=== PATIENT | female | born 1990 | race American Indian/Alaskan Native ===

== ENCOUNTER 2018-08-19 00:22 | Emergency (ER) | payer SELFPAY ==
[2018-08-19 19:59] VITALS: BP 102/67
== END 2018-08-19 03:20 | disposition left against medical advice (07) ==
LOC: ED 00:22
DX: R51 Headache (principal); Z53.21 Procedure and treatment not carried out due to patient leaving prior to being seen by health care provider

== ENCOUNTER 2018-10-02 02:20 | Emergency (ER) | payer OTHER ==
[2018-10-02 03:04] LABS: Hematocrit 35.6 % (30.3-42.9); Hemoglobin 11.9 gm/dl (10.1-14.3); Mean Corpuscular HGB Conc 34 % (30-34); Mean Corpuscular Volume 86 fl (79-97); Platelet Count 133 K/mm3 (140-440); Red Blood Count 4.15 M/mm3 (3.65-5.03); Red Cell Distribution Width 14.3 % (13.2-15.2)
[2018-10-02 03:23] LABS: BUN/Creatinine Ratio 28; Blood Urea Nitrogen 17 mg/dL (7-17); Calcium 8.9 mg/dL (8.4-10.2); Hemolysis Index 4
[2018-10-02] MEDS ORDERED: DepaCON 500 MG in NACL 0.9% 100 ML IV ONE (03:46)
[2018-10-02] MEDS ORDERED: NORCO 5/325 PO ONE (03:46)
--- NOTE | 2018-10-02 03:50 | Emergency Department Report ---
ED Headache HPI - General Chief Complaint: Headache Stated Complaint: HEADACHE Time Seen by Provider: 10/02/18 03:27 Source: patient Exam Limitations: no limitations - History of Present Illness Initial Comments: 27-year-old female presents to ED with left temporal headache. Patient reports seizure history, states she had a seizure yesterday and hit her head during the seizure. Patient states she took Tylenol for pain, however it did not help. Patient reports she takes Depakote for her seizures, states has been compliant with her medication. Timing/Duration: other (yesterday) Quality: moderate Head Injury Location: temporal Recent Head Trauma: head trauma < 24 hrs ago Associated Symptoms: denies: fever/chills, nausea/vomiting, vision changes, weakness Allergies/Adverse Reactions: Allergies No Known Allergies Allergy (Unverified 02/27/14 03:09) Home Medications: Ambulatory Orders Magnesium Oxide 400 mg PO BID #28 tablet 09/01/18 Valproic Acid 500 mg PO BID #120 capsule 09/01/18 Naproxen [Naprosyn] 500 mg PO BID #20 tablet 10/02/18 traMADol [Ultram] 50 mg PO Q6HR PRN #7 tablet 10/02/18 ED Review of Systems ROS: Stated complaint: HEADACHE Other details as noted in HPI Comment: All other systems reviewed and negative Constitutional: denies: chills, fever Gastrointestinal: denies: nausea, vomiting Neurological: headache, other (reports seizure). denies: weakness, numbness, paresthesias ED Past Medical Hx - Past Medical History Previous Medical History?: Yes Hx Hypertension: No Hx Diabetes: No Hx Deep Vein Thrombosis: No Hx Renal Disease: No Hx Sickle Cell Disease: No Hx Seizures: Yes (depakote) Hx Asthma: No Hx HIV: No - Surgical History Past Surgical History?: Yes Additional Surgical History: x2 - Social History Smoking Status: Former Smoker Substance Use Type: None - Medications Home Medications: Home Medications Medication Instructions Recorded Confirmed Last Taken Type Magnesium Oxide 400 mg PO BID #28 tablet 09/01/18 Unknown Rx Valproic Acid 500 mg PO BID #120 capsule 09/01/18 Unknown Rx Naproxen [Naprosyn] 500 mg PO BID #20 tablet 10/02/18 Unknown Rx traMADol [Ultram] 50 mg PO Q6HR PRN #7 tablet 10/02/18 Unknown Rx ED Physical Exam - General Limitations: No Limitations General appearance: alert, in no apparent distress - Head Head exam: Present: atraumatic, normocephalic - Eye Eye exam: Present: normal appearance, PERRL, EOMI - ENT ENT exam: Present: mucous membranes moist - Neck Neck exam: Present: normal inspection - Respiratory Respiratory exam: Present: normal lung sounds bilaterally. Absent: respiratory distress - Cardiovascular Cardiovascular Exam: Present: regular rate, normal rhythm - GI/Abdominal GI/Abdominal exam: Absent: distended - Extremities Exam Extremities exam: Present: normal inspection - Neurological Exam Neurological exam: Present: alert, oriented X3, CN II-XII intact. Absent: motor sensory deficit - Psychiatric Psychiatric exam: Present: normal affect, normal mood - Skin Skin exam: Present: warm, dry, intact, normal color ED Course Vital Signs 10/02/18 10/02/18 02:32 04:48 Temperature 97.8 F 97.0 F L Pulse Rate 70 58 L Respiratory 18 16 Rate Blood Pressure 93/63 Blood Pressure 104/57 [Left] O2 Sat by Pulse 98 100 Oximetry ED Medical Decision Making - Lab Data Result diagrams: 10/02/18 02:56 10/02/18 02:56 - Radiology Data Radiology results: report reviewed, image reviewed - Medical Decision Making 27 yo F w/ BARRETT since hitting her head during seizure yesterday. GCS 15, no neuro deficits present. CT Head normal. Depakote level subtherapeutic, so pt loaded with IV depacon. No seizures here in the ED. Pt reports improvement of pain. Will discharge at this time. Return precautions given - Differential Diagnosis contusion, intracranial injury, subtherapeutic meds Critical care attestation.: If time is entered above; I have spent that time in minutes in the direct care of this critically ill patient, excluding procedure time. ED Disposition Clinical Impression: Seizure, Head injury Disposition: - TO HOME OR SELFCARE Is pt being admited?: No Condition: Stable Instructions: Minor Head Injury (ED), Recurrent Seizures Adult (ED) Prescriptions: Naproxen [Naprosyn] 500 mg PO BID #20 tablet traMADol [Ultram] 50 mg PO Q6HR PRN #7 tablet PRN Reason: Pain Referrals: JERRY JIMENEZ MD [Primary Care Provider] - 3-5 Days Time of Disposition: 05:31
--- NOTE | 2018-10-02 04:31 | Cat Scan Report ---
PROCEDURE: CT HEAD/BRAIN WO CON TECHNIQUE: Computerized tomography of the head was performed without contrast material. CT DOSE LENGTH PRODUCT: mGycm HISTORY: head injury COMPARISONS: None . FINDINGS: Skull and scalp: Normal . Paranasal sinuses: Normal . Ventricles and subarachnoid spaces: Normal . Cerebrum: No evidence of hemorrhage, acute infarction or mass . Cerebellum and brainstem: No evidence of hemorrhage, acute infarction or mass . Vasculature: Normal . IMPRESSION: Normal Examination . This document is electronically signed by Kang Todd MD., Oct 02 2018 04:29:45 AM ET
[2018-10-02 05:49] VITALS: BP 98/58
== END 2018-10-02 05:48 | disposition home or self-care (01) ==
LOC: ED 02:20
DX: S09.90XA Unspecified injury of head, initial encounter (principal); R56.9 Unspecified convulsions; Z87.891 Personal history of nicotine dependence; X58.XXXA Exposure to other specified factors, initial encounter; Y93.89 Activity, other specified; Y92.89 Other specified places as the place of occurrence of the external cause; Y99.8 Other external cause status
CPT/HCPCS: 36415; 70450; 80048; 80164; 85027; 96365

== ENCOUNTER 2018-11-15 21:52 | Emergency (ER) | payer SELFPAY ==
[2018-11-15 21:57] VITALS: BP 113/73
[2018-11-15 22:49] LABS: Bilirubin,Urine NEG (Negative); Blood,Urine NEG (Negative); Color,Urine Yellow (Yellow); Mucus,Urine FEW /HPF; Protein,Urine <15 mg/dL mg/dL (Negative)
[2018-11-15 22:54] LABS: Hematocrit 36.9 % (30.3-42.9); Hemoglobin 12.6 gm/dl (10.1-14.3); Mean Corpuscular HGB Conc 34 % (30-34); Mean Corpuscular Volume 86 fl (79-97); Platelet Count 141 K/mm3 (140-440); Red Blood Count 4.29 M/mm3 (3.65-5.03); Red Cell Distribution Width 14.2 % (13.2-15.2)
[2018-11-15 23:07] LABS: Alanine Aminotransferase 74 units/L (7-56); Albumin 4.1 g/dL (3.9-5); BUN/Creatinine Ratio 16; Blood Urea Nitrogen 11 mg/dL (7-17); Calcium 9.1 mg/dL (8.4-10.2); Hemolysis Index 10
[2018-11-15] MEDS ORDERED: TORADOL IV ONE (23:28)
[2018-11-15] MEDS ORDERED: PEPCID IV ONE (23:28)
[2018-11-15] MEDS ORDERED: ZOFRAN IV ONE (23:28)
[2018-11-15 23:50] LABS: Basophils % (Manual) 0 % (0.0-1.8); Total Cells Counted 100
[2018-11-15 23:51] LABS: Ovalocytes Few; Platelet Estimate Consistent w Auto
--- NOTE | 2018-11-16 00:44 | Ultrasound Report ---
LIMITED RUQ ABDOMINAL ULTRASOUND INDICATION: abdominal pain. COMPARISON: No relevant prior imaging study available. FINDINGS: Pancreas: Visualized portions show no significant abnormality. Abdominal Aorta: No significant abnormality. IVC: No significant abnormality. Liver: Normal. Gallbladder: Normal. Sonographic Rico's sign: Not performed. Bile ducts: Normal. Common bile duct measures 3 mm. Free fluid: None. Additional Findings: None. IMPRESSION: 1. Normal exam. Signer Name: Ellis Trejo MD Signed: 11/16/2018 12:40 AM Workstation Name: [id number]
[2018-11-16 02:39] LABS: HCG Qualitative,Urine Negative (Negative)
--- NOTE | 2018-11-16 02:41 | Emergency Department Report ---
ED Abdominal Pain HPI - General Chief Complaint: Abdominal Pain Stated Complaint: ABD PAIN Time Seen by Provider: 11/15/18 23:20 Source: patient Mode of arrival: Ambulatory Limitations: No Limitations - History of Present Illness Initial Comments: Patient is a 28-year-old -Cypriot female with a history of seizures who presents to the ED with complaint of acute onset of persistent intermittent diffuse abdominal pain that radiates to the right upper quadrant area for the last 1 week with nausea and vomiting intermittently. Patient denies diarrhea, dizziness, chest pain, shortness of breath, fever, chills, dysuria, urinary frequency and urgency, headache, chest pain, vaginal bleeding, vaginal discharge, cough or shortness of breath. MD Complaint: abdominal pain -: Sudden, week(s) Location: diffuse Radiation: RUQ Migration to: no migration Severity: moderate Severity scale (0 -10): 5 Quality: cramping, aching Consistency: intermittent Improves With: nothing Worsens With: nothing Associated Symptoms: denies other symptoms, nausea, vomiting. denies: diarrhea, chills, constipation, hematemesis, hematochezia, melena, hematuria, anorexia - Related Data LMP Date: 11/03/18 Previous Rx's Medication Instructions Recorded Last Taken Type Magnesium Oxide 400 mg PO BID #28 tablet 09/01/18 Unknown Rx Valproic Acid 500 mg PO BID #120 capsule 09/01/18 Unknown Rx Naproxen [Naprosyn] 500 mg PO BID #20 tablet 10/02/18 Unknown Rx traMADol [Ultram] 50 mg PO Q6HR PRN #7 tablet 10/02/18 Unknown Rx Dicyclomine [Bentyl] 20 mg PO Q6H PRN #24 tablet 11/16/18 Unknown Rx Ondansetron [Zofran Odt] 4 mg PO Q6HR PRN #15 tab.rapdis 11/16/18 Unknown Rx Ranitidine HCl [Zantac] 150 mg PO Q12H #24 tablet 11/16/18 Unknown Rx Allergies Allergy/AdvReac Type Severity Reaction Status Date / Time No Known Allergies Allergy Unverified 02/27/14 03:09 ED Review of Systems ROS: Stated complaint: ABD PAIN Other details as noted in HPI Constitutional: denies: chills, fever Eyes: denies: eye pain, eye discharge, vision change ENT: denies: ear pain, throat pain Respiratory: denies: cough, shortness of breath, wheezing Cardiovascular: denies: chest pain, palpitations Endocrine: no symptoms reported Gastrointestinal: abdominal pain, nausea, vomiting. denies: diarrhea Genitourinary: denies: urgency, dysuria, discharge Musculoskeletal: denies: back pain, joint swelling, arthralgia Skin: denies: rash, lesions Neurological: denies: headache, weakness, paresthesias Psychiatric: denies: anxiety, depression Hematological/Lymphatic: denies: easy bleeding, easy bruising ED Past Medical Hx - Past Medical History Previous Medical History?: Yes Hx Hypertension: No Hx Diabetes: No Hx Deep Vein Thrombosis: No Hx Renal Disease: No Hx Sickle Cell Disease: No Hx Seizures: Yes (depakote) Hx Asthma: No Hx HIV: No - Surgical History Past Surgical History?: Yes Additional Surgical History: x2 - Social History Smoking Status: Never Smoker Substance Use Type: None - Medications Home Medications: Home Medications Medication Instructions Recorded Confirmed Last Taken Type Magnesium Oxide 400 mg PO BID #28 tablet 09/01/18 Unknown Rx Valproic Acid 500 mg PO BID #120 capsule 09/01/18 Unknown Rx Naproxen [Naprosyn] 500 mg PO BID #20 tablet 10/02/18 Unknown Rx traMADol [Ultram] 50 mg PO Q6HR PRN #7 tablet 10/02/18 Unknown Rx Dicyclomine [Bentyl] 20 mg PO Q6H PRN #24 tablet 11/16/18 Unknown Rx Ondansetron [Zofran Odt] 4 mg PO Q6HR PRN #15 tab.rapdis 11/16/18 Unknown Rx Ranitidine HCl [Zantac] 150 mg PO Q12H #24 tablet 11/16/18 Unknown Rx ED Physical Exam - General Limitations: No Limitations General appearance: alert, in no apparent distress - Head Head exam: Present: atraumatic, normocephalic, normal inspection - Eye Eye exam: Present: normal appearance, PERRL, EOMI. Absent: scleral icterus, conjunctival injection, nystagmus Pupils: Present: normal accommodation - ENT ENT exam: Present: normal exam, normal orophraynx, mucous membranes moist, TM's normal bilaterally, normal external ear exam - Neck Neck exam: Present: normal inspection, full ROM. Absent: tenderness, lymphadenopathy - Respiratory Respiratory exam: Present: normal lung sounds bilaterally. Absent: respiratory distress, wheezes, rales, rhonchi, chest wall tenderness, accessory muscle use, decreased breath sounds, prolonged expiratory - Cardiovascular Cardiovascular Exam: Present: regular rate, normal rhythm, normal heart sounds. Absent: systolic murmur, diastolic murmur, rubs, gallop - GI/Abdominal GI/Abdominal exam: Present: soft, tenderness (Palpable moderate RUQ tenderness), normal bowel sounds. Absent: guarding, rebound, hyperactive bowel sounds, hypoactive bowel sounds, organomegaly, mass, bruit - Rectal Rectal exam: Present: deferred - Extremities Exam Extremities exam: Present: normal inspection, full ROM, normal capillary refill - Back Exam Back exam: Present: normal inspection, full ROM. Absent: tenderness, CVA tenderness (L), muscle spasm, paraspinal tenderness - Neurological Exam Neurological exam: Present: alert, oriented X3, CN II-XII intact, normal gait, reflexes normal - Psychiatric Psychiatric exam: Present: normal affect, normal mood - Skin Skin exam: Present: warm, dry, intact, normal color. Absent: rash ED Course Vital Signs 11/15/18 11/15/18 21:56 22:00 Temperature 97.8 F 97.8 F Pulse Rate 77 79 Respiratory 18 18 Rate Blood Pressure 113/73 113/73 O2 Sat by Pulse 100 100 Oximetry - Reevaluation(s) Reevaluation #1: 11/16/18 02:43 Patient is alert and oriented 3 and is not in any distress. Lipase results were reviewed and are remarkable for leukopenia, and elevated LFTs, with AST of 146 and ALT of 74. Urinalysis unremarkable. Patient's symptoms are likely viral based on the lab for studies as an sedation. Patient was treated for pain and nausea and vomiting in the ED. The gallbladder ultrasound shows normal gallbladder, and normal gallbladder wall thickness, with no gallstones. Patient was sent home on medications and otherwise return to the ED immediately if symptoms get worse. Patient was otherwise advised to follow up with her primary care physician in 7-10 days for reevaluation. ED Medical Decision Making - Lab Data Result diagrams: 11/15/18 22:23 11/15/18 22:26 - Radiology Data Radiology results: report reviewed, image reviewed The gallbladder ultrasound shows normal gallbladder, and normal gallbladder wall thickness, with no gallstones. P - Medical Decision Making Patient is alert and oriented 3 and is not in any distress. Lipase results were reviewed and are remarkable for leukopenia, and elevated LFTs, with AST of 146 and ALT of 74. Urinalysis unremarkable. Patient's symptoms are likely viral based on the lab for studies as an sedation. Patient was treated for pain and nausea and vomiting in the ED. The gallbladder ultrasound shows normal gal lbladder, and normal gallbladder wall thickness, with no gallstones. Patient was sent home on medications and otherwise return to the ED immediately if symptoms get worse. Patient was otherwise advised to follow up with her primary care physician in 7-10 days for reevaluation. - Differential Diagnosis Abdominal pain, Gastroenteritis, Nausea and vomiting Critical care attestation.: If time is entered above; I have spent that time in minutes in the direct care of this critically ill patient, excluding procedure time. ED Disposition Clinical Impression: Viral gastroenteritis, Nausea and vomiting in adult Abdominal pain Qualifiers: Abdominal location: generalized Qualified Code(s): R10.84 - Generalized abdominal pain Disposition: TO HOME OR SELFCARE Is pt being admited?: No Does the pt Need Aspirin: No Condition: Stable Instructions: Abdominal Pain (ED), Gastroenteritis (ED), Acute Nausea and Vomiting (ED) Additional Instructions: Take medications with food, drink plenty of fluids and follow up with your primary care physician in 7-10 days for reevaluation. Return to the ED immediately if symptoms get worse. Prescriptions: Dicyclomine [Bentyl] 20 mg PO Q6H PRN #24 tablet PRN Reason: Pain , Severe (7-10) Ranitidine HCl [Zantac] 150 mg PO Q12H #24 tablet Ondansetron [Zofran Odt] 4 mg PO Q6HR PRN #15 tab.rapdis PRN Reason: Nausea Referrals: [facility] [Outside] - 3-5 Days Time of Disposition: 02:47 Print Language: CROATIAN
[2018-11-16] MEDS ORDERED: ZOFRAN ODT PO ONE (02:42)
[2018-11-16] MEDS ORDERED: PEPCID PO ONE (02:42)
[2018-11-16] MEDS ORDERED: BENTYL PO ONE (02:42)
== END 2018-11-16 03:46 | disposition home or self-care (01) ==
LOC: ED 21:52
DX: A08.4 Viral intestinal infection, unspecified (principal)
CPT/HCPCS: 36415; 76705; 80053; 81001; 81025; 85007; 85025; 96374; 96375; Q0162

== ENCOUNTER 2018-11-18 02:36 | Emergency (ER) | payer SELFPAY ==
[2018-11-18] MEDS ORDERED: KEPPRA 1,000 MG/NS 0.75% 100ML 1,000 MG/100 ML BAG IV ONE (03:02)
[2018-11-18 03:25] LABS: Hematocrit 36.3 % (30.3-42.9); Hemoglobin 12.2 gm/dl (10.1-14.3); Mean Corpuscular HGB Conc 34 % (30-34); Mean Corpuscular Volume 86 fl (79-97); Platelet Count 131 K/mm3 (140-440); Red Cell Distribution Width 14.4 % (13.2-15.2)
--- NOTE | 2018-11-18 04:10 | Emergency Department Report ---
ED Seizure HPI - General Chief Complaint: Seizure Stated Complaint: SEIZURE Time Seen by Provider: 11/18/18 02:59 Source: family, EMS Mode of arrival: Stretcher Limitations: Other - History of Present Illness Initial Comments: Ms. Morgan is a 28-year-old female with history of seizure disorder for the past 2-3 years. She was formally followed by neurologist Ana Maria. However now due to lack of insurance she is unable to follow up with a seizure specialist. In the past she has taken Depakote and Keppra. Most recently Depakote. Complaint: seizure -: Sudden Description of Episode: loss of consciousness, tonic-clonic movement -: second(s) (40) Witnessed:: Yes Trauma: No Seizure History: known seizure disorder, history of non-compliance Place: home Possible Precipitating Event: medication Associated Symptoms: denies other symptoms Treatments Prior to Arrival: none - Related Data Previous Rx's Medication Instructions Recorded Last Taken Type Magnesium Oxide 400 mg PO BID #28 tablet 09/01/18 Unknown Rx Valproic Acid 500 mg PO BID #120 capsule 09/01/18 Unknown Rx Naproxen [Naprosyn] 500 mg PO BID #20 tablet 10/02/18 Unknown Rx traMADol [Ultram] 50 mg PO Q6HR PRN #7 tablet 10/02/18 Unknown Rx Dicyclomine [Bentyl] 20 mg PO Q6H PRN #24 tablet 11/16/18 Unknown Rx Ondansetron [Zofran Odt] 4 mg PO Q6HR PRN #15 tab.rapdis 11/16/18 Unknown Rx Ranitidine HCl [Zantac] 150 mg PO Q12H #24 tablet 11/16/[address] [DepaKOTE DR] 500 mg PO BID 30 Days #60 tablet 11/18/18 Unknown Rx Allergies Allergy/AdvReac Type Severity Reaction Status Date / Time No Known Allergies Allergy Unverified 02/27/14 03:09 ED Review of Systems ROS: Stated complaint: SEIZURE Other details as noted in HPI Comment: All other systems reviewed and negative Constitutional: denies: fever, malaise Respiratory: denies: cough Cardiovascular: denies: chest pain ED Past Medical Hx - Past Medical History Previous Medical History?: Yes Hx Hypertension: No Hx Diabetes: No Hx Deep Vein Thrombosis: No Hx Renal Disease: No Hx Sickle Cell Disease: No Hx Seizures: Yes (depakote) Hx Asthma: No Hx HIV: No - Surgical History Past Surgical History?: Yes Additional Surgical History: x2 - Social History Smoking Status: Never Smoker Substance Use Type: Alcohol - Medications Home Medications: Home Medications Medication Instructions Recorded Confirmed Last Taken Type Magnesium Oxide 400 mg PO BID #28 tablet 09/01/18 Unknown Rx Valproic Acid 500 mg PO BID #120 capsule 09/01/18 Unknown Rx Naproxen [Naprosyn] 500 mg PO BID #20 tablet 10/02/18 Unknown Rx traMADol [Ultram] 50 mg PO Q6HR PRN #7 tablet 10/02/18 Unknown Rx Dicyclomine [Bentyl] 20 mg PO Q6H PRN #24 tablet 11/16/18 Unknown Rx Ondansetron [Zofran Odt] 4 mg PO Q6HR PRN #15 tab.rapdis 11/16/18 Unknown Rx Ranitidine HCl [Zantac] 150 mg PO Q12H #24 tablet 11/16/[address] [DepaKOTE DR] 500 mg PO BID 30 Days #60 tablet 11/18/18 Unknown Rx ED Physical Exam - General Limitations: Other General appearance: alert, in no apparent distress - Head Head exam: Present: atraumatic, normocephalic - Eye Eye exam: Present: normal appearance - ENT ENT exam: Present: mucous membranes moist - Neck Neck exam: Present: normal inspection, full ROM - Respiratory Respiratory exam: Present: normal lung sounds bilaterally. Absent: respiratory distress, wheezes, rales, rhonchi - Cardiovascular Cardiovascular Exam: Present: regular rate, normal rhythm, normal heart sounds. Absent: systolic murmur, diastolic murmur, rubs, gallop - GI/Abdominal GI/Abdominal exam: Present: soft, normal bowel sounds. Absent: distended, tenderness, guarding, rebound - Extremities Exam Extremities exam: Present: normal inspection - Back Exam Back exam: Present: normal inspection - Neurological Exam Neurological exam: Present: alert, oriented X3 - Psychiatric Psychiatric exam: Present: normal affect, normal mood - Skin Skin exam: Present: warm, dry, intact, normal color. Absent: rash ED Course Vital Signs 11/18/18 03:19 Temperature 98.2 F Pulse Rate 87 Respiratory 17 Rate Blood Pressure 106/70 [Left] O2 Sat by Pulse 98 Oximetry ED Medical Decision Making - Lab Data Result diagrams: 11/18/18 03:09 - Medical Decision Making Breakthrough seizure due to medication noncompliance. Upon arrival just found was neurologically intact awake and aware. I have prescribed Depakogloria Critical care attestation.: If time is entered above; I have spent that time in minutes in the direct care of this critically ill patient, excluding procedure time. ED Disposition Clinical Impression: Seizure, Breakthrough seizure Disposition: DC- TO HOME OR SELFCARE Is pt being admited?: No Does the pt Need Aspirin: No Condition: Stable Instructions: Epilepsy (ED), Recurrent Seizures Adult (ED) Prescriptions: Divalproex [DepCarlos LAZCANO] 500 mg PO BID 30 Days #60 tablet Referrals: RADHA ROSENDRISCOLL MD SWATHI [Primary Care Provider] - 3-5 Days Forms: Work/School Release Form(ED)
[2018-11-18 04:24] LABS: BUN/Creatinine Ratio 20; Blood Urea Nitrogen 12 mg/dL (7-17); Calcium 9.1 mg/dL (8.4-10.2); Hemolysis Index 40
[2018-11-18 06:24] VITALS: BP 119/70
== END 2018-11-18 06:24 | disposition home or self-care (01) ==
LOC: ED 02:36
DX: G40.909 Epilepsy, unspecified, not intractable, without status epilepticus (principal)
CPT/HCPCS: 36415; 80048; 80164; 85027; 93005; 93010; 96374; 99284; J1953

== ENCOUNTER 2018-11-18 19:33 | Emergency (ER) | payer SELFPAY ==
[2018-11-18 20:15] LABS: Hematocrit 34.2 % (30.3-42.9); Hemoglobin 11.8 gm/dl (10.1-14.3); Mean Corpuscular HGB Conc 35 % (30-34); Mean Corpuscular Volume 85 fl (79-97); Platelet Count 118 K/mm3 (140-440); Red Blood Count 4.04 M/mm3 (3.65-5.03); Red Cell Distribution Width 14.2 % (13.2-15.2)
[2018-11-18] MEDS ORDERED: NORCO 5/325 PO ONE (20:23)
[2018-11-18 20:26] LABS: BUN/Creatinine Ratio 17; Blood Urea Nitrogen 12 mg/dL (7-17); Hemolysis Index 78
--- NOTE | 2018-11-18 21:37 | Emergency Department Report ---
ED Seizure HPI - General Chief Complaint: Seizure Stated Complaint: SEIZURES Time Seen by Provider: 11/18/18 20:13 Source: patient, EMS Mode of arrival: Stretcher Limitations: No Limitations - History of Present Illness Initial Comments: Patient is a 28-year-old Female presenting status post seizure. Patient was seen yesterday for breakthrough seizure and medical noncompliance. Patient given a prescription for Depakote but she has not had a chance to get it yet. Patient left earlier this morning and was very fatigued and tired from being here in emergency department she went to sleep. Patient when she woke up this afternoon had plans to go get her seizure medications however the patient had a seizure at home before being able to have medication filled. Seizure was witnessed. There was no injury. Patient is complaining of a mild headache which she normally gets after having seizure. Associated Symptoms: malaise. denies: chest pain, confusion, cough, fever/chills, loss of appetite, rash, shortness of breath, syncope, weakness, tongue injury, shoulder dislocation - Related Data Previous Rx's Medication Instructions Recorded Last Taken Type Magnesium Oxide 400 mg PO BID #28 tablet 09/01/18 Unknown Rx Valproic Acid 500 mg PO BID #120 capsule 09/01/18 Unknown Rx Naproxen [Naprosyn] 500 mg PO BID #20 tablet 10/02/18 Unknown Rx traMADol [Ultram] 50 mg PO Q6HR PRN #7 tablet 10/02/18 Unknown Rx Dicyclomine [Bentyl] 20 mg PO Q6H PRN #24 tablet 11/16/18 Unknown Rx Ondansetron [Zofran Odt] 4 mg PO Q6HR PRN #15 tab.rapdis 11/16/18 Unknown Rx Ranitidine HCl [Zantac] 150 mg PO Q12H #24 tablet 11/16/[address] [Depakote Dr] 500 mg PO BID 30 Days #60 tablet 11/18/18 Unknown Rx Allergies Allergy/AdvReac Type Severity Reaction Status Date / Time No Known Allergies Allergy Unverified 02/27/14 03:09 ED Review of Systems ROS: Stated complaint: SEIZURES Other details as noted in HPI Comment: All other systems reviewed and negative ED Past Medical Hx - Past Medical History Hx Hypertension: No Hx Diabetes: No Hx Deep Vein Thrombosis: No Hx Renal Disease: No Hx Sickle Cell Disease: No Hx Seizures: Yes (depakote) Hx Asthma: No Hx HIV: No - Surgical History Additional Surgical History: x2 - Social History Smoking Status: Never Smoker Substance Use Type: Alcohol, Marijuana - Medications Home Medications: Home Medications Medication Instructions Recorded Confirmed Last Taken Type Magnesium Oxide 400 mg PO BID #28 tablet 09/01/18 Unknown Rx Valproic Acid 500 mg PO BID #120 capsule 09/01/18 Unknown Rx Naproxen [Naprosyn] 500 mg PO BID #20 tablet 10/02/18 Unknown Rx traMADol [Ultram] 50 mg PO Q6HR PRN #7 tablet 10/02/18 Unknown Rx Dicyclomine [Bentyl] 20 mg PO Q6H PRN #24 tablet 11/16/18 Unknown Rx Ondansetron [Zofran Odt] 4 mg PO Q6HR PRN #15 tab.rapdis 11/16/18 Unknown Rx Ranitidine HCl [Zantac] 150 mg PO Q12H #24 tablet 11/16/[address] [Depakote Dr] 500 mg PO BID 30 Days #60 tablet 11/18/18 Unknown Rx ED Physical Exam - General Limitations: No Limitations General appearance: alert, in no apparent distress - Head Head exam: Present: atraumatic, normocephalic - Eye Eye exam: Present: normal appearance, PERRL, EOMI - ENT ENT exam: Present: mucous membranes moist - Neck Neck exam: Present: normal inspection - Respiratory Respiratory exam: Present: normal lung sounds bilaterally. Absent: respiratory distress, wheezes, rales, rhonchi - Cardiovascular Cardiovascular Exam: Present: regular rate, normal rhythm. Absent: systolic murmur, diastolic murmur, rubs, gallop - GI/Abdominal GI/Abdominal exam: Present: soft, normal bowel sounds. Absent: distended, tenderness, guarding, rebound - Extremities Exam Extremities exam: Present: normal inspection - Back Exam Back exam: Present: normal inspection - Neurological Exam Neurological exam: Present: alert, oriented X3 - Psychiatric Psychiatric exam: Present: normal affect, normal mood - Skin Skin exam: Present: warm, dry, intact, normal color. Absent: rash ED Course Vital Signs 11/18/18 19:43 Temperature 98.6 F Pulse Rate 79 Respiratory 18 Rate Blood Pressure 98/54 O2 Sat by Pulse 96 Oximetry ED Medical Decision Making - Lab Data Result diagrams: 11/18/18 19:54 11/18/18 19:54 Lab Results 11/18/18 11/18/18 Range/Units 19:54 19:54 WBC 3.1 L (4.5-11.0) K/mm3 RBC 4.04 (3.65-5.03) M/mm3 Hgb 11.8 (10.1-14.3) gm/dl Hct 34.2 (30.3-42.9) % MCV 85 (79-97) fl MCH 29 (28-32) pg MCHC 35 H (30-34) % RDW 14.2 (13.2-15.2) % Plt Count 118 L (140-440) K/mm3 Sodium 139 (137-145) mmol/L Potassium 4.3 (3.6-5.0) mmol/L Chloride 105.4 (98-107) mmol/L Carbon Dioxide 22 (22-30) mmol/L Anion Gap 16 mmol/L BUN 12 (7-17) mg/dL Creatinine 0.7 (0.7-1.2) mg/dL Estimated GFR > 60 ml/min BUN/Creatinine Ratio 17 % Glucose 91 (65-100) mg/dL Calcium 9.0 (8.4-10.2) mg/dL - Medical Decision Making Patient loaded with Depakote and patient will be discharged home. Critical care attestation.: If time is entered above; I have spent that time in minutes in the direct care of this critically ill patient, excluding procedure time. ED Disposition Clinical Impression: Breakthrough seizure Disposition: - TO HOME OR SELFCARE Is pt being admited?: No Does the pt Need Aspirin: No Condition: Stable Instructions: Recurrent Seizures Adult (ED) Prescriptions: Divalproex [Depakote Dr] 500 mg PO BID 30 Days #60 tablet Referrals: JERRY JIMENEZ MD [Primary Care Provider] - 3-5 Days Time of Disposition: 21:37
[2018-11-18 21:47] VITALS: BP 93/56
== END 2018-11-18 21:46 | disposition home or self-care (01) ==
LOC: ED 19:33
DX: R56.9 Unspecified convulsions (principal); F12.10 Cannabis abuse, uncomplicated; Z79.899 Other long term (current) drug therapy
CPT/HCPCS: 36415; 80048; 85027

== ENCOUNTER 2019-01-08 11:32 | Emergency (ER) | payer SELFPAY ==
[2019-01-08] MEDS ORDERED: ATIVAN IV ONE (11:50)
[2019-01-08] MEDS ORDERED: KEPPRA 1,000 MG/NS 0.75% 100ML 1,000 MG/100 ML BAG IV ONE (11:51)
--- NOTE | 2019-01-08 11:55 | Emergency Department Report ---
ED General Adult HPI - General Chief complaint: Seizure Stated complaint: SEIZURE Time Seen by Provider: 01/08/19 11:45 Source: patient Mode of arrival: Stretcher Limitations: No Limitations - History of Present Illness Initial comments: He should presents to the emergency department with the chief complaint of seizure activity. Patient takes Depakote 500 mg twice daily has been out for 2 days. Patient states her seizures today and no different and was she's had in the past. Patient denies a headache, SOB, or chest pain. -: Sudden Severity scale (0 -10): 0 Consistency: constant Improves with: none Worsens with: none Associated Symptoms: denies other symptoms Treatments Prior to Arrival: none - Related Data Previous Rx's Medication Instructions Recorded Last Taken Type Divalproex Dr [Depakote Dr] 500 mg PO BID 30 Days #60 tablet 11/18/18 01/05/19 10:[address] [DepaKOTE DR] 500 mg PO BID #60 tablet 01/08/19 Unknown Rx Naproxen [Naprosyn] 500 mg PO BID PRN #20 tablet 01/08/19 Unknown Rx Allergies Allergy/AdvReac Type Severity Reaction Status Date / Time No Known Allergies Allergy Verified 01/08/19 11:33 ED Review of Systems ROS: Stated complaint: SEIZURE Other details as noted in HPI Comment: All other systems reviewed and negative Constitutional: denies: chills, fever Eyes: denies: eye pain, eye discharge, vision change ENT: denies: ear pain, throat pain Respiratory: denies: cough, shortness of breath, wheezing Cardiovascular: denies: chest pain, palpitations Endocrine: no symptoms reported Gastrointestinal: denies: abdominal pain, nausea, diarrhea Genitourinary: denies: urgency, dysuria, discharge Musculoskeletal: denies: back pain, joint swelling, arthralgia Skin: denies: rash, lesions Neurological: denies: headache, weakness, paresthesias Psychiatric: denies: anxiety, depression Hematological/Lymphatic: denies: easy bleeding, easy bruising ED Past Medical Hx - Past Medical History Hx Hypertension: No Hx Diabetes: No Hx Deep Vein Thrombosis: No Hx Renal Disease: No Hx Sickle Cell Disease: No Hx Seizures: Yes (depakote) Hx Asthma: No Hx HIV: No - Surgical History Additional Surgical History: x2 - Social History Smoking Status: Never Smoker Substance Use Type: None - Medications Home Medications: Home Medications Medication Instructions Recorded Confirmed Last Taken Type Divalproex Dr [Depakote Dr] 500 mg PO BID 30 Days #60 tablet 11/18/18 01/08/19 01/05/19 10:[address] [DepaKOTE DR] 500 mg PO BID #60 tablet 01/08/19 Unknown Rx Naproxen [Naprosyn] 500 mg PO BID PRN #20 tablet 01/08/19 Unknown Rx ED Physical Exam - General Limitations: No Limitations General appearance: alert, in no apparent distress - Head Head exam: Present: atraumatic, normocephalic - Eye Eye exam: Present: normal appearance, PERRL, EOMI - ENT ENT exam: Present: mucous membranes moist - Neck Neck exam: Present: normal inspection - Respiratory Respiratory exam: Present: normal lung sounds bilaterally. Absent: respiratory distress - Cardiovascular Cardiovascular Exam: Present: regular rate, normal rhythm. Absent: systolic murmur, diastolic murmur, rubs, gallop - GI/Abdominal GI/Abdominal exam: Present: soft, normal bowel sounds. Absent: distended, tenderness - Extremities Exam Extremities exam: Present: normal inspection - Back Exam Back exam: Present: normal inspection - Neurological Exam Neurological exam: Present: alert, oriented X3, CN II-XII intact. Absent: motor sensory deficit - Psychiatric Psychiatric exam: Present: normal affect, normal mood - Skin Skin exam: Present: warm, dry, intact, normal color. Absent: rash ED Course Vital Signs 01/08/19 11:33 Temperature 98.2 F Pulse Rate 79 Respiratory 18 Rate Blood Pressure 109/63 O2 Sat by Pulse 100 Oximetry ED Medical Decision Making - Medical Decision Making IV Ativan and IV Keppra Given Critical care attestation.: If time is entered above; I have spent that time in minutes in the direct care of this critically ill patient, excluding procedure time. ED Disposition Clinical Impression: Seizure Disposition: DC-01 TO HOME OR SELFCARE Is pt being admited?: No Does the pt Need Aspirin: No Condition: Stable Instructions: Recurrent Seizures Adult (ED) Additional Instructions: Return if worse Prescriptions: Divalproex Dr [DepaKOTE DR] 500 mg PO BID #60 tablet Referrals: [facility], [Provider Group] - 3-5 Days [facility] [Provider Group] - 3-5 Days Time of Disposition: 12:49
[2019-01-08 13:20] VITALS: BP 124/74
[2019-01-08] MEDS ORDERED: NAPROSYN PO ONE (13:45)
== END 2019-01-08 13:17 | disposition home or self-care (01) ==
LOC: ED 11:32
DX: R56.9 Unspecified convulsions (principal); Z79.899 Other long term (current) drug therapy
CPT/HCPCS: 96365; 96375; 99283; J1953; J2060

== ENCOUNTER 2019-01-10 03:14 | Emergency (ER) | payer SELFPAY ==
[2019-01-10] MEDS ORDERED: TYLENOL PO ONE (06:23)
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
[2019-01-10 07:09] LABS: Bilirubin,Urine NEG (Negative); Blood,Urine NEG (Negative); Color,Urine Yellow (Yellow); Mucus,Urine FEW /HPF; Protein,Urine <15 mg/dL mg/dL (Negative)
[2019-01-10 07:11] LABS: HCG Qualitative,Urine Negative (Negative)
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
[2019-01-10 09:13] VITALS: BP 111/72
== END 2019-01-10 09:13 | disposition home or self-care (01) ==
LOC: ED 03:14
DX: T74.21XA Adult sexual abuse, confirmed, initial encounter (principal); Z79.899 Other long term (current) drug therapy; Y07.59 Other non-family member, perpetrator of maltreatment and neglect
CPT/HCPCS: 72170; 74019; 81001; 81025; 99284

== ENCOUNTER 2019-06-07 10:11 | Emergency (ER) | payer SELFPAY ==
[2019-06-07] MEDS ORDERED: LORazepam 2 MG/ML VIAL IV ONE (10:36)
[2019-06-07] MEDS ORDERED: BUTALB/ACETAMINOPHEN/CAFFEINE TAB PO ONE (10:36)
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
[2019-06-07 11:37] LABS: Hematocrit 38.1 % (30.3-42.9); Hemoglobin 13.3 gm/dl (10.1-14.3); Mean Corpuscular HGB Conc 35 % (30-34); Mean Corpuscular Volume 85 fl (79-97); Platelet Count 142 K/mm3 (140-440); Red Blood Count 4.49 M/mm3 (3.65-5.03); Red Cell Distribution Width 13.8 % (13.2-15.2)
[2019-06-07 12:13] LABS: BUN/Creatinine Ratio 11; Blood Urea Nitrogen 8 mg/dL (7-17); Calcium 9.6 mg/dL (8.4-10.2); Hemolysis Index 7
[2019-06-07] MEDS ORDERED: VALPROATE SODIUM 500 MG in SODIUM CHLORIDE 0.9% 100 ML IV ONE (13:00)
[2019-06-07] MEDS ORDERED: DIVALPROEX ER 500 MG TAB PO ONE (13:15)
[2019-06-07 13:16] VITALS: BP 108/69
[2019-06-07 13:34] LABS: Total Cells Counted 100
[2019-06-07 13:35] LABS: Giant Platelets Rare; Platelet Estimate Consistent w Auto; RBC Morphology Normal
== END 2019-06-07 13:29 | disposition home or self-care (01) ==
LOC: ED 10:11
DX: R56.9 Unspecified convulsions (principal); D72.819 Decreased white blood cell count, unspecified; Z79.899 Other long term (current) drug therapy; Z88.2 Allergy status to sulfonamides
CPT/HCPCS: 36415; 80048; 80164; 83735; 84703; 85007; 85025; 96374; 99283; J2060

== ENCOUNTER 2019-06-07 20:39 | Emergency (ER) | payer SELFPAY ==
[2019-06-07 21:56] LABS: Basophils % (Auto) 0.8 % (0.0-1.8); Eosinophils % (Auto) 0.5 % (0.0-4.3); Hematocrit 37.3 % (30.3-42.9); Lymphocytes # (Auto) 1.7 K/mm3 (1.2-5.4); Lymphocytes % (Auto) 47.9 % (13.4-35.0); Mean Corpuscular HGB Conc 35 % (30-34); Mean Corpuscular Volume 85 fl (79-97); Monocytes # (Auto) 0.2 K/mm3 (0.0-0.8); Monocytes % (Auto) 5.4 % (0.0-7.3); Platelet Count 150 K/mm3 (140-440); Red Blood Count 4.41 M/mm3 (3.65-5.03); Red Cell Distribution Width 14.1 % (13.2-15.2)
[2019-06-07 22:00] LABS: Amphetamine Screen,Urine PRESUMPTIVE NEGATIVE; Benzodiazepines Screen,Urine PRESUMPTIVE NEGATIVE; Cocaine Screen,Urine PRESUMPTIVE NEGATIVE; Methadone Screen,Urine PRESUMPTIVE NEGATIVE; Opiate Screen,Urine PRESUMPTIVE NEGATIVE
[2019-06-07 22:01] LABS: Bilirubin,Urine NEG (Negative); Blood,Urine NEG (Negative); Color,Urine Yellow (Yellow); Mucus,Urine 2+ /HPF; Protein,Urine <15 mg/dL mg/dL (Negative)
[2019-06-07 22:11] LABS: Cannabinoid Screen,Urine PRESUMPTIVE POSITIVE
[2019-06-07 22:18] LABS: BUN/Creatinine Ratio 9; Blood Urea Nitrogen 6 mg/dL (7-17); Calcium 9.7 mg/dL (8.4-10.2); Hemolysis Index 17
[2019-06-07] MEDS: DIVALPROEX DR 500 MG TAB PO SCH (23:56)
--- NOTE | 2019-06-08 01:24 | Emergency Department Report ---
ED Psych HPI - General Chief Complaint: Psych Stated Complaint: SUICIDAL Time Seen by Provider: 06/07/19 21:31 Source: patient, EMS Mode of arrival: Ambulatory Limitations: No Limitations - History of Present Illness Initial Comments: 28-year-old female with past medical history bipolar, PTSD, and seizures presents to the hospital with complaints of suicidal ideation. Patient states she was on the phone having an argument with her ex-boyfriend and threatened to kill herself. Mother overheard this compensation via phone and tried to call back the patient did not answer. Patient then called luis and patient was subsequently brought to the ER. Patient made threats to overdose on drugs or slit her wrists prior to arrival and states she doesn't want to live anymore. She currently denies suicidal ideation. She denies any physical complaints. She is compliant with her Depakote. History of Overdose attempt in the past. - Related Data Previous Rx's Medication Instructions Recorded Last Taken Type Divalproex Dr [Depakote Dr] 500 mg PO BID #90 06/07/19 Unknown Rx Allergies Allergy/AdvReac Type Severity Reaction Status Date / Time sulfamethoxazole Allergy Swelling Verified 06/07/19 10:23 [From Bactrim] trimethoprim [From Bactrim] Allergy Swelling Verified 06/07/19 10:23 ED Review of Systems ROS: Stated complaint: SUICIDAL Other details as noted in HPI Comment: All other systems reviewed and negative ED Past Medical Hx - Past Medical History Previous Medical History?: Yes Hx Sickle Cell Disease: No Hx Seizures: Yes (depakote) Hx Psychiatric Treatment: Yes (depression) - Surgical History Additional Surgical History: x2 - Social History Smoking Status: Never Smoker Substance Use Type: None - Medications Home Medications: Home Medications Medication Instructions Recorded Confirmed Last Taken Type Divalproex Dr [Depakote Dr] 500 mg PO BID #90 06/07/19 06/07/19 Unknown Rx ED Physical Exam - General Limitations: No Limitations - Other Other exam information: General: No limitations, patient is alert in no acute distress Head exam: Atraumatic, normocephalic Eyes exam: Normal appearance ENT: Moist mucous membrane Neck exam: Normal inspection, full range of motion Respiratory exam: Clear to auscultation bilateral, no wheezes, rales, crackles Cardiovascular: Normal rate and rhythm Abdomen: Soft, nondistended, and nontender, with normal bowel sounds, no rebound, or guarding, Extremity: No deformity Back: Normal Inspection Neurologic: Alert, oriented x3, speech clear, no gross motor or sensory deficit Psychiatric: Normal mood, flat affect Skin: No rash ED Course Vital Signs 06/07/19 06/08/19 06/08/19 20:46 01:40 09:53 Temperature 98.3 F 98.0 F 97.7 F Pulse Rate 87 77 85 Respiratory 18 20 18 Rate Blood Pressure 101/79 Blood Pressure 105/60 114/67 [Right] O2 Sat by Pulse 99 96 99 Oximetry 06/08/19 06/09/19 06/09/19 20:18 01:57 07:00 Temperature 98.0 F 97.6 F 97.5 F L Pulse Rate 77 74 68 Respiratory 16 16 18 Rate Blood Pressure Blood Pressure 109/70 125/86 124/42 [Right] O2 Sat by Pulse 99 99 100 Oximetry ED Medical Decision Making - Lab Data Result diagrams: 06/07/19 21:37 06/07/19 21:37 Lab Results 06/07/19 06/07/19 06/07/19 Range/Units 21:37 21:37 21:37 WBC (4.5-11.0) K/mm3 RBC (3.65-5.03) M/mm3 Hgb (10.1-14.3) gm/dl Hct (30.3-42.9) % MCV (79-97) fl MCH (28-32) pg MCHC (30-34) % RDW (13.2-15.2) % Plt Count (140-440) K/mm3 Lymph % (Auto) (13.4-35.0) % [place] % (Auto) (0.0-7.3) % Eos % (Auto) (0.0-4.3) % Baso % (Auto) (0.0-1.8) % Lymph # (1.2-5.4) K/mm3 [place] # (0.0-0.8) K/mm3 Eos # (0.0-0.4) K/mm3 Baso # (0.0-0.1) K/mm3 Seg Neutrophils % (40.0-70.0) % Seg Neutrophils # (1.8-7.7) K/mm3 Sodium 139 (137-145) mmol/L Potassium 4.4 (3.6-5.0) mmol/L Chloride 102.6 (98-107) mmol/L Carbon Dioxide 22 (22-30) mmol/L Anion Gap 19 mmol/L BUN 6 L (7-17) mg/dL Creatinine 0.7 (0.7-1.2) mg/dL Estimated GFR > 60 ml/min BUN/Creatinine Ratio 9 % Glucose 93 (65-100) mg/dL Calcium 9.7 (8.4-10.2) mg/dL HCG, Qual (Negative) Urine Color (Yellow) Urine Turbidity (Clear) Urine pH (5.0-7.0) Ur Specific [place] (1.003-1.030) Urine Protein (Negative) mg/dL Urine Glucose (UA) (Negative) mg/dL Urine Ketones (Negative) mg/dL Urine Blood (Negative) Urine Nitrite (Negative) Urine Bilirubin (Negative) Urine Urobilinogen (<2.0) mg/dL Ur Leukocyte Esterase (Negative) Urine WBC (Auto) (0.0-6.0) /HPF Urine RBC (Auto) (0.0-6.0) /HPF U Epithel Cells (Auto) (0-13.0) /HPF Urine Mucus /HPF Salicylates 0.4 L (2.8-20.0) mg/dL Urine Opiates Screen Urine Methadone Screen Acetaminophen < 5.0 L (10.0-30.0) ug/mL Ur Barbiturates Screen Valproic Acid 25.7 L (50-100) ug/mL Ur Phencyclidine Scrn Ur Amphetamines Screen U Benzodiazepines Scrn Urine Cocaine Screen U Marijuana (THC) Screen Drugs of Abuse Note Plasma/Serum Alcohol (0-0.07) % 06/07/19 06/07/19 06/07/19 Range/Units 21:37 21:37 21:37 WBC 3.6 L (4.5-11.0) K/mm3 RBC 4.41 (3.65-5.03) M/mm3 Hgb 13.0 (10.1-14.3) gm/dl Hct 37.3 (30.3-42.9) % MCV 85 (79-97) fl MCH 30 (28-32) pg MCHC 35 H (30-34) % RDW 14.1 (13.2-15.2) % Plt Count 150 (140-440) K/mm3 Lymph % (Auto) 47.9 H (13.4-35.0) % [place] % (Auto) 5.4 (0.0-7.3) % Eos % (Auto) 0.5 (0.0-4.3) % Baso % (Auto) 0.8 (0.0-1.8) % Lymph # 1.7 (1.2-5.4) K/mm3 [place] # 0.2 (0.0-0.8) K/mm3 Eos # 0.0 (0.0-0.4) K/mm3 Baso # 0.0 (0.0-0.1) K/mm3 Seg Neutrophils % 45.4 (40.0-70.0) % Seg Neutrophils # 1.6 L (1.8-7.7) K/mm3 Sodium (137-145) mmol/L Potassium (3.6-5.0) mmol/L Chloride (98-107) mmol/L Carbon Dioxide (22-30) mmol/L Anion Gap mmol/L BUN (7-17) mg/dL Creatinine (0.7-1.2) mg/dL Estimated GFR ml/min BUN/Creatinine Ratio % Glucose (65-100) mg/dL Calcium (8.4-10.2) mg/dL HCG, Qual Negative (Negative) Urine Color (Yellow) Urine Turbidity (Clear) Urine pH (5.0-7.0) Ur Specific [place] (1.003-1.030) Urine Protein (Negative) mg/dL Urine Glucose (UA) (Negative) mg/dL Urine Ketones (Negative) mg/dL Urine Blood (Negative) Urine Nitrite (Negative) Urine Bilirubin (Negative) Urine Urobilinogen (<2.0) mg/dL Ur Leukocyte Esterase (Negative) Urine WBC (Auto) (0.0-6.0) /HPF Urine RBC (Auto) (0.0-6.0) /HPF U Epithel Cells (Auto) (0-13.0) /HPF Urine Mucus /HPF Salicylates (2.8-20.0) mg/dL Urine Opiates Screen Urine Methadone Screen Acetaminophen (10.0-30.0) ug/mL Ur Barbiturates Screen Valproic Acid (50-100) ug/mL Ur Phencyclidine Scrn Ur Amphetamines Screen U Benzodiazepines Scrn Urine Cocaine Screen U Marijuana (THC) Screen Drugs of Abuse Note Plasma/Serum Alcohol < 0.01 (0-0.07) % 06/07/19 06/07/19 Range/Units 21:38 21:38 WBC (4.5-11.0) K/mm3 RBC (3.65-5.03) M/mm3 Hgb (10.1-14.3) gm/dl Hct (30.3-42.9) % MCV (79-97) fl MCH (28-32) pg MCHC (30-34) % RDW (13.2-15.2) % Plt Count (140-440) K/mm3 Lymph % (Auto) (13.4-35.0) % [place] % (Auto) (0.0-7.3) % Eos % (Auto) (0.0-4.3) % Baso % (Auto) (0.0-1.8) % Lymph # (1.2-5.4) K/mm3 [place] # (0.0-0.8) K/mm3 Eos # (0.0-0.4) K/mm3 Baso # (0.0-0.1) K/mm3 Seg Neutrophils % (40.0-70.0) % Seg Neutrophils # (1.8-7.7) K/mm3 Sodium (137-145) mmol/L Potassium (3.6-5.0) mmol/L Chloride (98-107) mmol/L Carbon Dioxide (22-30) mmol/L Anion Gap mmol/L BUN (7-17) mg/dL Creatinine (0.7-1.2) mg/dL Estimated GFR ml/min BUN/Creatinine Ratio % Glucose (65-100) mg/dL Calcium (8.4-10.2) mg/dL HCG, Qual (Negative) Urine Color Yellow (Yellow) Urine Turbidity Slightly-cloudy (Clear) Urine pH 7.0 (5.0-7.0) Ur Specific [place] 1.026 (1.003-1.030) Urine Protein <15 mg/dl (Negative) mg/dL Urine Glucose (UA) Neg (Negative) mg/dL Urine Ketones Neg (Negative) mg/dL Urine Blood Neg (Negative) Urine Nitrite Neg (Negative) Urine Bilirubin Neg (Negative) Urine Urobilinogen 4.0 (<2.0) mg/dL Ur Leukocyte Esterase Neg (Negative) Urine WBC (Auto) 1.0 (0.0-6.0) /HPF Urine RBC (Auto) 12.0 (0.0-6.0) /HPF U Epithel Cells (Auto) 12.0 (0-13.0) /HPF Urine Mucus 2+ /HPF Salicylates (2.8-20.0) mg/dL Urine Opiates Screen Presumptive negative Urine Methadone Screen Presumptive negative Acetaminophen (10.0-30.0) ug/mL Ur Barbiturates Screen Presumptive positive Valproic Acid (50-100) ug/mL Ur Phencyclidine Scrn Presumptive negative Ur Amphetamines Screen Presumptive negative U Benzodiazepines Scrn Presumptive negative Urine Cocaine Screen Presumptive negative U Marijuana (THC) Screen Presumptive positive Drugs of Abuse Note Disclamer Plasma/Serum Alcohol (0-0.07) % - Medical Decision Making Patient is a subtherapeutic Depakote level. Current dose of the continued. No signs of seizure activity or physical complaints. Patient is medically clear for psychiatric assessment which is not available until the a.m. Critical Care Time: No Critical care attestation.: If time is entered above; I have spent that time in minutes in the direct care of this critically ill patient, excluding procedure time. ED Disposition Clinical Impression: Suicidal ideation, Medical clearance for psychiatric admission Disposition: [id number] PSY HOSP/PSY UNIT Is pt being admited?: No Condition: Stable Instructions: Suicide Prevention for Adults (ED) Additional Instructions: Follow-up as per mental health fire watcher instructions. Return to the emergency department any acute change or problem. Referrals: [facility] [Provider Group] - 3-5 Days [facility] [Outside] - 3-5 Days [facility] [Outside] - 24 Hours PRIMARY CARE, [Primary Care Provider] - 3-5 Days Forms: Accompanied Note
[2019-06-08] MEDS: DIVALPROEX DR 500 MG TAB PO SCH ×2 (11:03→22:00)
[2019-06-08] MEDS ORDERED: MELATONIN 5 MG TAB PO ONE (21:00)
[2019-06-09 07:57] VITALS: BP 124/42
[2019-06-09] MEDS: DIVALPROEX DR 500 MG TAB PO SCH (11:13)
== END 2019-06-09 11:17 ==
LOC: ED 20:39
DX: F32.9 Major depressive disorder, single episode, unspecified (principal); Z79.899 Other long term (current) drug therapy; Z88.2 Allergy status to sulfonamides; Z88.8 Allergy status to other drugs, medicaments and biological substances
CPT/HCPCS: 36415; 80048; 80164; 80307; 80320; 81001; 84703; 85025; G0480